=== PATIENT | male | born 1970 ===

== ENCOUNTER 2024-10-01 04:20 | Day surgery (SDC) | payer OTHER ==
[2024-09-24 14:07] VITALS: BP 128/89
[~2024-10-01] VITALS: Ht 170.2 cm; Wt 77.1 kg
[~2024-10-01 04:20] MED LIST: DICLOFENAC SODIUM; ROSUVASTATIN CA20 MG; SYNTHROID50 MCG; [UNRECOGNIZED DRUG - OTHER]
[2024-10-01] MEDS ORDERED: CEFAZOLIN SODIUM 1,000 MG VIAL IV ONE (07:45)
[2024-10-01] MEDS ORDERED: FAMOTIDINE/PF 20 MG/10 ML SYRINGE IV SCH (09:30)
[2024-10-01] MEDS ORDERED: CEFAZOLIN SODIUM 1,000 MG VIAL IV SCH (09:30)
== END 2024-10-01 13:15 | disposition home or self-care (01) ==
LOC: CIR.AMB 04:20
PROVIDERS: ATTEND Specialist
DX: K40.90 Unilateral inguinal hernia, without obstruction or gangrene, not specified as recurrent (principal)